=== PATIENT | female | born 1995 | race Caucasian/White ===

== ENCOUNTER 2024-06-29 09:27 | Outpatient (CLI) | payer MEDICAID | END 2024-06-29 09:28 | disposition home or self-care (01) | LOC: BICULT 09:27 | PROVIDERS: ATTEND Advanced Practice Midwife | DX: Z34.02 Encounter for supervision of normal first pregnancy, second trimester (principal); Z3A.21 21 weeks gestation of pregnancy | CPT/HCPCS: 76805 ==